=== PATIENT | female | born 1980 | race Two or more races ===

== ENCOUNTER → 2017-12-05 | Outpatient (CLI) | payer MEDICARE, MEDICAID ==
[2017-12-05 11:17] LABS: Basophils # (auto) 0.1 uL; Basophils % (auto) 0.6 % (0.0-2.0); Eosinophils # (auto) 0.2 uL; Eosinophils % (auto) 2.4 % (0.0-7.0); Hematocrit 43.8 % (36.0-46.0); Hemoglobin 14.9 g/dL (12.2-16.2); Lymphocytes # (auto) 3.1 uL; Lymphocytes % (auto) 34.5 % (10.0-50.0); Mean Corpuscular Hemoglobin 27.7 pg (28.0-32.0); Mean Corpuscular Volume 81.4 fL (80.0-100.0); Monocytes # (auto) 0.5 uL; Monocytes % (auto) 5.4 % (0.0-12.0); Neutrophils # (auto) 5.1 uL; Neutrophils % (auto) 57.1 % (37.0-80.0); Platelet Count (auto) 284 10^3/uL (140-450); Red Blood Cells 5.38 10^6/uL (4.0-5.20); Red Cell Distribution Width 12.7 % (11.8-14.3); White Blood Cell 8.9 10^3/uL (4.4-10.8)
[2017-12-05 11:56] LABS: Leuteinizing Hormone 5.2 IU/L
[2017-12-05 11:57] LABS: Follicle Stimulating Hormone 3.85 IU/L (SEE BELOW)
== END | disposition home or self-care (01) ==
LOC: LAB 10:59
PROVIDERS: ATTEND Obstetrics & Gynecology
DX: N93.9 Abnormal uterine and vaginal bleeding, unspecified (principal); I10 Essential (primary) hypertension; Z79.4 Long term (current) use of insulin
CPT/HCPCS: 36415; 82670; 83001; 83002; 84403; 84443; 85025